=== PATIENT | female | born 1990 | race African-American/Black ===

== ENCOUNTER 2018-04-12 17:02 | Emergency (ER) | payer OTHER ==
[~2018-04-12] VITALS: Ht 160 cm; Wt 95.3 kg
[~2018-04-12 17:02] MED LIST: PREN1TAB60 PO
[2018-04-12 17:15] VITALS: BP 117/92
[2018-04-12] MEDS ORDERED: AMOX875T PO (17:58)
--- NOTE | 2018-04-12 18:03 | PHYS DOC ---
Past Medical History Past Medical History: No Pertinent History (MARIANNA PARKER APRN) Past Surgical History: Other Additional Past Surgical Histo: right ankle fracture repair with hardware (MARIANNA PARKER APRN) Additional Information: 6-7 cigarettes daily Alcohol Use: Occasionally Drug Use: None (MARIANNA PARKER APRN) Adult General Chief Complaint Chief Complaint: SORE THROAT HPI HPI Patient is a 28 year old female who presents with a sore throat that has been worsening over the past few days. The patient states that it hurts to swallow but she is able to handle her own secretions. She has been taking over-the- counter pain medication with moderate relief. She started noticing pus pockets on her tonsils. (MARIANNA PARKER APRN) Review of Systems Review of Systems Constitutional: Denies fever or chills [] Eyes: Denies change in visual acuity, redness, or eye pain [] HENT: See history of present illness Respiratory: Denies cough or shortness of breath [] Cardiovascular: No additional information not addressed in HPI [] GI: Denies abdominal pain, nausea, vomiting, bloody stools or diarrhea [] : Denies dysuria or hematuria [] Musculoskeletal: Denies back pain or joint pain [] Integument: Denies rash or skin lesions [] Neurologic: Denies headache, focal weakness or sensory changes [] Endocrine: Denies polyuria or polydipsia [] All other systems were reviewed and found to be within normal limits, except as documented in this note. (MARIANNA PARKER APRN) Allergies Allergies Allergies Coded Allergies Type Severity Reaction Last Updated Verified No Known Drug Allergies 09/04/13 No (JANETTE BOOGIE MD) Physical Exam Physical Exam Constitutional: Well developed, well nourished, no acute distress, non-toxic appearance. [] HENT: Normocephalic, atraumatic, pharyngeal erythema with oral exudates noted, nose normal. [] Eyes: PERRLA, EOMI, conjunctiva normal, no discharge. [] Neck: Normal range of motion, positive anterior cervical lymphadenopathy, supple , no stridor. [] Cardiovascular:Heart rate regular rhythm, no murmur [] Lungs & Thorax: Bilateral breath sounds clear to auscultation [] Abdomen: Bowel sounds normal, soft, no tenderness, no masses, no pulsatile masses. [] Skin: Warm, dry, no erythema, no rash. [] Back: No tenderness, no CVA tenderness. [] Extremities: No tenderness, no cyanosis, no clubbing, ROM intact, no edema. [] Neurologic: Alert and oriented X 3, normal motor function, normal sensory function, no focal deficits noted. [] Psychologic: Affect normal, judgement normal, mood normal. [] (MARIANNA PARKER APRN) Current Patient Data Vital Signs Vital Signs Date Time Temp Pulse Resp B/P (MAP) Pulse Ox O2 Delivery O2 Flow Rate FiO2 04/12/18 17:15 99.2 84 20 117/92 (100) 98 Room Air 99.2 (JANETTE BOOGIE MD) Lab Values Laboratory Tests Test 04/12/18 17:20 Group A Streptococcus Rapid Positive (NEGATIVE) (JANETTE BOOGIE MD) EKG EKG [] (MARIANNA PARKER APRN) Radiology/Procedures Radiology/Procedures [] (MARIANNA PARKER APRN) Course & Med Decision Making Course & Med Decision Making Pertinent Labs and Imaging studies reviewed. (See chart for details) []The patient is positive for strep pharyngitis. (MARIANNA PARKER APRN) Course & Med Decision Making Staff Physician Addendum: I was working in the ER during the course of this patient's visit. I was available for consultation as needed, but I was not directly involved in the care of this patient. (JANETTE BOOGIE MD) Dragon Disclaimer Dragon Disclaimer This electronic medical record was generated, in whole or in part, using a voice recognition dictation system. (MARIANNA PARKER APRN) Departure Departure Impression: Primary Impression: Strep pharyngitis Disposition: 01 HOME, SELF-CARE Condition: STABLE Referrals: NO PCP (PCP) Patient Instructions: Strep Throat Additional Instructions: Take the medication as directed. You may use ibuprofen or Tylenol for pain or fever. You may use Chloraseptic or sore throat lozenges for pain. Salt water gargles may also provide comfort. Throw your toothbrush away on day 3 of the your antibiotic therapy and start a new toothbrush. Follow-up with your primary care provider in 4 days if not improving or return to the emergency department if worsening. Scripts Amoxicillin (AMOXICILLIN) 875 Mg Tablet 1 TAB PO BID for strep throat, #20 TAB Prov: MARIANNA PARKER APRN 04/12/18 MARIANNA PARKER APRN Apr 12, 2018 18:03 JANETTE BOOGIE MD Apr 13, 2018 08:45
== END 2018-04-12 18:07 | disposition home or self-care (01) ==
LOC: ER 17:02
DX: J02.0 Streptococcal pharyngitis (principal); B95.0 Streptococcus, group A, as the cause of diseases classified elsewhere; F17.210 Nicotine dependence, cigarettes, uncomplicated
CPT/HCPCS: 87880; 99283

== ENCOUNTER 2018-07-17 14:37 | Emergency (ER) | payer OTHER, SELFPAY ==
[~2018-07-17] VITALS: Ht 160 cm; Wt 99.8 kg
[~2018-07-17 14:37] MED LIST changes: +AMOX875T PO
[2018-07-17 14:48] VITALS: BP 154/89
[2018-07-17] MEDS ORDERED: NAPROXEN 500 MG TABLET PO STA (14:58)
[2018-07-17] MEDS ORDERED: AMOXICILLIN 250 MG CAPSULE. PO ONE (15:00)
[2018-07-17] MEDS ORDERED: HYDROcodone/APAP 5/325MG 1 TAB TABLET PO ONE (15:00)
[2018-07-17] MEDS ORDERED: HYDR-3164 PO (15:10)
[2018-07-17] MEDS ORDERED: AMOX500T PO (15:10)
[2018-07-17] MEDS ORDERED: DICL50TA4 PO (15:10)
--- NOTE | 2018-07-17 15:10 | PHYS DOC ---
Past Medical History Past Medical History: No Pertinent History Past Surgical History: Other Additional Past Surgical Histo: right ankle fracture repair with hardware Alcohol Use: Occasionally Drug Use: None Adult General Chief Complaint Chief Complaint: DENTAL PROBLEM HPI HPI Patient is a 28 year old female with no medical history presents to the ED today complaining of a sharp constant 8 out of 10 left lower gum dental pain that began a week ago. Patient states yesterday she is eating chips and broke her tooth. She states she has an appointment with her dentist on Sunday. She states she has tried ibuprofen and Tylenol [id number] with no relief. Denies any fever or trismus. Review of Systems Review of Systems Constitutional: Denies fever or chills [] HENT: Reports dental pain. Denies nasal congestion or sore throat [] Musculoskeletal: Denies back pain or joint pain [] Integument: Denies rash or skin lesions [] Neurologic: Denies headache, focal weakness or sensory changes [] All other systems were reviewed and found to be within normal limits, except as documented in this note. Current Medications Current Medications Current Medications Medications (Trade) Dose Ordered Sig/Alfie Start Time Stop Time Status Last Admin Dose Admin Acetaminophen/ Hydrocodone Bitart (Lortab 5/325) 2 tab 1X ONCE 07/17/18 15:00 07/17/18 15:01 DC Amoxicillin (Amoxil) 500 mg 1X ONCE 07/17/18 15:00 07/17/18 15:01 DC Naproxen (Naprosyn) 500 mg 1X STAT 07/17/18 14:58 07/17/18 15:01 DC Allergies Allergies Allergies Coded Allergies Type Severity Reaction Last Updated Verified No Known Drug Allergies 09/04/13 No Physical Exam Physical Exam Constitutional: Well developed, well nourished, no acute distress, non-toxic appearance. [] HENT: Normocephalic, atraumatic, bilateral external ears normal, oropharynx moist, no oral exudates, nose normal. [] Left lower gum wisdom teeth is broken. No gum erythema. No swelling. Skin: Warm, dry, no erythema, no rash. [] Back: No tenderness, no CVA tenderness. [] Extremities: No tenderness, no cyanosis, no clubbing, ROM intact, no edema. [] Neurologic: Alert and oriented X 3, normal motor function, normal sensory function, no focal deficits noted. [] Psychologic: Affect normal, judgement normal, mood normal. [] Current Patient Data Vital Signs Vital Signs Date Time Temp Pulse Resp B/P (MAP) Pulse Ox O2 Delivery O2 Flow Rate FiO2 07/17/18 14:48 97.9 82 18 154/89 (110) 98 Room Air 97.9 EKG EKG [] Radiology/Procedures Radiology/Procedures [] Course & Med Decision Making Course & Med Decision Making Pertinent Labs and Imaging studies reviewed. (See chart for details) This is a 28-year-old female patient presenting to the ED today with dental pain. Was discharged with amoxicillin and pain medicine. She has an appointment with her dentist on Sunday. Dragon Disclaimer Dragon Disclaimer This electronic medical record was generated, in whole or in part, using a voice recognition dictation system. Departure Departure Impression: Primary Impression: Dentalgia Disposition: HOME, SELF-CARE Condition: STABLE Referrals: NO PCP (PCP) Follow-up with a dentist as soon as possible Patient Instructions: Dental Pain, [id number] Additional Instructions: You were evaluated to the medicine for dental pain. Please take the prescribed antibiotics until completed. Follow-up with your dentist as soon as possible. Scripts Diclofenac Sodium (DICLOFENAC SODIUM) 50 Mg Tablet. 1 TAB PO BID, #20 TAB 0 Refills Prov: MARKY JORGE APRN 07/17/18 Hydrocodone/Apap 5-325 (NORCO 5-325 TABLET) 1 Each Tablet 1 TAB PO Q6HRS, #8 TAB Prov: MARKY JORGE APRN 07/17/18 Amoxicillin (AMOXICILLIN) 500 Mg Tablet 1 TAB PO BID, #20 TAB Prov: MARKY JORGE APRN 07/17/18 MARKY JORGE APRN July 17, 2018 15:10
== END 2018-07-17 15:18 | disposition home or self-care (01) ==
LOC: ER 14:37
DX: K08.89 Other specified disorders of teeth and supporting structures (principal)
CPT/HCPCS: 99284